=== PATIENT | male | born 1990 | race Caucasian/White ===

== ENCOUNTER 2023-06-04 18:00 | Emergency (ER) | payer BC, OTHER ==
[2023-06-04 18:16] VITALS: BP 140/80; PULSE 81
[2023-06-04] MEDS ORDERED: Take Home: traMADol 50 MG, 4 Tab Pack PO ONE (18:50)
== END 2023-06-04 19:06 | disposition home or self-care (01) ==
LOC: DL.ED 18:00
DX: S80.812A Abrasion, left lower leg, initial encounter (principal); S90.32XA Contusion of left foot, initial encounter; S40.021A Contusion of right upper arm, initial encounter; W11.XXXA Fall on and from ladder, initial encounter
CPT/HCPCS: 73630-LT; 99282; 99283; A9270-GY